=== PATIENT | female | born 1995 | race Hispanic/Latino ===

== ENCOUNTER 2017-12-31 13:07 | Observation (INO) | payer MEDICAID ==
[~2017-12-31] VITALS: Ht 149.9 cm; Wt 61.7 kg
== END 2017-12-31 14:28 | disposition home or self-care (01) ==
LOC: EDH 13:07 → LDH 13:08
PROVIDERS: ADMIT Obstetrics & Gynecology; ATTEND Obstetrics & Gynecology
DX: O26.893 Other specified pregnancy related conditions, third trimester (principal); R10.9 Unspecified abdominal pain; M54.9 Dorsalgia, unspecified; Z3A.37 37 weeks gestation of pregnancy
CPT/HCPCS: 99285; G0378